=== PATIENT | female | born 1955 | race Caucasian/White ===

== ENCOUNTER 2017-07-14 09:51 | Observation (INO) ==
[2017-07-14] MEDS ORDERED: 0.9 % Sodium Chloride 1,000 ML IVC ONE (10:07)
--- NOTE | 2017-07-14 10:12 | Emergency Department Note ---
Disposition Clinical Impression: Bacterial enterocolitis, Hypokalemia, Hypomagnesemia, Lung nodule Dyspnea Qualifiers: Dyspnea type: unspecified Qualified Code(s): R06.00 - Dyspnea, unspecified Disposition: Admitted As Inpatient Condition: Good Referrals: Silviano Rasmussen DO [Primary Care Provider] - Forms: ED Satisfaction Letter, Work/School Release Time of Disposition: 13:24 General Adult HPI - General Stated complaint: amb pain/shaking Time Seen by Provider: 07/14/17 09:54 Nursing Notes Reviewed: Yes Vital Signs Reviewed: Yes - Related Data Home Medications Medication Instructions Recorded Confirmed FLUoxetine HCl [Prozac] 20 mg PO TID 12/27/14 12/25/16 Metformin [Glucophage] 1,000 mg PO BID 12/27/14 12/25/16 Multivitamin [Multi-Day Vitamins] 1 tab PO DAILY 12/27/14 12/25/16 Treprostinil Sodium [Remodulin] 0 mg IJ AD PRN 12/27/14 12/25/16 Diltiazem CD (24hr) [Cardizem CD] 240 mg PO DAILY 12/25/16 12/25/16 Furosemide [Lasix] 20 mg PO TID 12/25/16 12/25/16 Omeprazole [PriLOSEC] 40 mg PO DAILY 12/25/16 12/25/16 Riociguat [Adempas] 2.5 mg PO TID 12/25/16 12/25/16 Simvastatin [Zocor] 10 mg PO HS 12/25/16 12/25/16 Spironolactone [Aldactone] 25 mg PO BID 12/25/16 12/25/16 Tramadol HCl/Acetaminophen 2 each PO TID 12/25/16 12/25/16 [Ultracet Tablet] Warfarin [Coumadin] 7.5 mg PO 1800 12/25/16 12/25/16 Cyanocobalamin (Vitamin B-12) 1,000 mcg SL DAILY 07/14/17 07/14/17 [Vitamin B-12] Ferrous Sulfate [Iron] 325 mg PO DAILY 07/14/17 07/14/17 Magnesium Oxide [Magnesium] 400 mg PO DAILY 07/14/17 07/14/17 Warfarin [Coumadin] 10 mg PO THSA 07/14/17 07/14/17 Allergies Allergy/AdvReac Type Severity Reaction Status Date / Time chlorhexidine Allergy Rash Verified 04/24/17 14:57 nitrofurantoin Allergy Rash Verified 04/24/17 14:57 [From Macrobid] piroxicam [From Feldene] AdvReac Palpitation Verified 07/14/17 11:53 s All systems ED: reviewed and negative except as stated. Constitutional: Reports: chills (Last night and this morning. Intermittent.). Denies: fever ENT ED: Denies: congestion Cardiovascular: Denies: chest pain Respiratory: Reports: dyspnea. Denies: cough, wheezes Gastrointestinal: Reports: abdominal pain. Denies: nausea, vomiting, diarrhea, hematemesis, melena, hematochezia Genitourinary: Reports: other (Incontinent of urine) Musculoskeletal: Denies: back pain, neck pain Integumentary: Reports: lesions (Enlarging mole to lower back). Denies: rash, abrasion Neurological: Reports: weakness. Denies: headache Past Medical History - Past Medical History Attestation: Yes The following information was validated with the patient. 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 - Social History Smoking Status: Never smoker Smokeless Tobacco Status: No Alcohol use: Reports: none Drug use: Reports: none Physical Exam - General Limitations: no limitations General appearance: alert, anxious - Head Head exam: atraumatic, normocephalic, normal inspection - Eye Eye exam: Present: normal appearance, PERRL, EOMI - ENT ENT exam: normal exam, normal oropharynx, mucous membranes moist - Neck Neck exam: Present: normal inspection, full ROM, trachea midline - Chest Chest inspection: Present: normal inspection, symmetric chest wall rise - Respiratory Respiratory exam: Present: normal lung sounds bilaterally - Cardiovascular Cardiovascular exam: Present: normal rhythm, tachycardia, normal heart sounds - Abdominal Exam Abdominal exam: Present: soft, Non-Tender. Absent: tenderness, distention, guarding, rebound, rigidity - Neurological Exam Neurological exam: Present: alert, oriented X3 - Psychiatric Psychiatric exam: Present: normal affect, normal mood - Skin Skin exam: Present: warm, dry, intact, normal color Course Course Narrative: Female patient very anxious resting in bed. Complaining of chills that happened last night and then again this morning. She states that she is also short of breath. She is on 2 L of oxygen at night for pulmonary hypertension. She is also on medication report continuously for her pulmonary hypertension. 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 It was shown to not still be actively bleeding. She is on Coumadin. We will check PT/INR. She is also complaining of urinary incontinence this morning. She denies any bowel incontinence. She states she got up to go to the bathroom whenever she was walking back to the room she had some urinary incontinence. She is also complaining of decreased sensation to right lower extremity. She is neurovascularly intact in all 4 extremities and is mentating appropriately on my exam. She describes a history of tingling in her right lower extremity. We will get a CT of patient's abdomen with contrast. We will also get a CTA of her chest as well. We will get basic lab workup inclusive of the PT/INR and hemoglobin level. History last week of a MRI that she states she has a mass needs biopsy. She has no active cancer history that she is aware of however she is concerned that she possibly does have a new cancer. She also has a mole in her midline back around her sacral area. She states this has been growing. On exam she does have good rectal tone. She had 400 mL of urine in her bladder prior to Torres placement. After the Torres was placed she had 600 mL out. We will send a UA. She is getting a liter of fluid at this time. We are also provide her with some Ativan to help with her anxiety. She is tachycardic initially on exam however whenever you speak to her her heart rate does decrease into the 90s. Her abdomen is mildly distended prior to the Torres placement around her bladder area. She describes pain on palpation of her whole abdomen. It is not rigid. It is not scaphoid. Nonperitoneal - Reevaluation(s) Reevaluation #1: Patient reevaluated. After 1 L of fluid and a dose of Ativan patient states she is feeling better. She does have enterocolitis on her CT. Also a pulmonary nodule noted. No signs of PE. She has no abdominal pain on exam at this time. We have sent her urine for culture. She did have trouble urinating earlier today however she denies any burning on urination. We will admit her for her lactic acidosis and enterocolitis. Also hypokalemia and hypomagnesemia. We have started the Pt on Cipro and flagyl. Time: 12:46 - Consultations Consultation #1: Dr Aguilar accepted Pt in stable condition. Time: 13:24 Vital Signs Temperature 98.7 F 07/14/17 09:58 Pulse Rate 99 07/14/17 09:58 Respiratory Rate 22 07/14/17 09:58 Blood Pressure 146/84 07/14/17 09:58 O2 Sat by Pulse Oximetry 99 07/14/17 09:58 Temperature 98.7 F 07/14/17 09:58 Pulse Rate 75 07/14/17 13:59 Respiratory Rate 12 07/14/17 13:59 Blood Pressure 110/62 07/14/17 13:59 O2 Sat by Pulse Oximetry 99 07/14/17 13:59 Oxygen Delivery Oxygen Delivery Nasal Cannula Medical Decision Making - Medical Records Medical records reviewed: Yes I reviewed the patient's medical records. - Lab Data Lab results reviewed: Yes I reviewed the patient's lab results. Result diagrams: 07/14/17 10:33 07/14/17 10:33 Lab Results 07/14/17 07/14/17 07/14/17 Range/Units 10:33 10:33 10:33 WBC 10.8 (4.3-11.1) K/mcL RBC 4.06 (3.82-4.97) M/mcL Hgb 12.3 (11.5-15.4) g/dL Hct 34.8 L (35.3-44.9) % MCV 85.7 (83.0-100.0) fL MCH 30.3 (28.0-33.3) pg MCHC 35.3 (31.6-35.5) g/dL RDW 13.8 (11.5-14.5) % Plt Count 184 (140-400) K/mcL MPV 9.8 (9.4-12.4) fL Immature Gran % 0.7 (0-4) % Seg Neutrophils % 86.3 % Lymphocytes % 5.2 % Monocytes % 6.7 % Eosinophils % 0.7 % Basophils % 0.4 % Neutrophils # 9.3 H (1.6-8.9) K/mcL Lymphocytes # 0.6 (0.6-4.6) K/mcL Monocytes # 0.7 (0.0-1.3) K/mcL Eosinophils # 0.1 (0.0-0.6) K/mcL Basophils # 0.0 (0.0-0.2) K/mcL PT (9.4-12.1) Seconds INR D-Dimer (0-500) ng/mLFEU Sodium 139 (136-145) mEq/L Potassium 2.9 L (3.5-5.1) mEq/L Chloride 104 (98-107) mEq/L Carbon Dioxide 18 L (23-29) mEq/L BUN 14 (8-23) mg/dL Creatinine 0.69 (0.60-1.20) mg/dL Est GFR ( Amer) > 60 (> 60) Est GFR (Non-Af Amer) > 60 (> 60) BUN/Creatinine Ratio 20 (6-26) Glucose 94 (70-105) mg/dL Calculated Osmolality 288 (280-300) Lactic Acid 3.5 H (0.5-2.2) mmol/L Calcium 9.6 (8.6-10.3) mg/dL Phosphorus 1.1 L (2.7-4.5) mg/dL Magnesium 1.3 L (1.6-2.6) mg/dL Total Bilirubin 0.7 (0.3-1.0) mg/dL AST 14 (13-39) Units/L ALT 15 (7-52) Units/L Alkaline Phosphatase 81 (34-104) Units/L Troponin I < 0.03 (< 0.04) ng/mL Serum Total Protein 7.2 (6.4-8.9) g/dL Albumin 4.2 (3.5-5.7) g/dL Globulin 3.0 (2.4-3.5) g/dL Albumin/Globulin Ratio 1.4 (1.1-2.2) TSH 2.241 (0.340-5.600) mcIU/mL Urine Color (Yellow) Urine Clarity (Clear) Urine pH (5.0-8.0) pH Units Ur Specific [place] (1.010-1.025) Urine Protein (Neg-Trace) mg/dL Urine Glucose (UA) (Normal) mg/dL Urine Ketones (Negative) mg/dL Urine Blood (Negative) Urine Nitrite (Negative) Urine Bilirubin (Negative) Urine Urobilinogen (Normal) mg/dL Ur Leukocyte Esterase (Negative) Urine Microscopic RBC (0-3) per hpf Urine Microscopic WBC (0-3) per hpf Ur Squamous Epith Cells (None-Few) per lpf Urine Bacteria (None-Few) per hpf Hyaline Casts Ur Culture Indicated? (NO) 07/14/17 07/14/17 07/14/17 Range/Units 10:33 10:33 10:42 WBC (4.3-11.1) K/mcL RBC (3.82-4.97) M/mcL Hgb (11.5-15.4) g/dL Hct (35.3-44.9) % MCV (83.0-100.0) fL MCH (28.0-33.3) pg MCHC (31.6-35.5) g/dL RDW (11.5-14.5) % Plt Count (140-400) K/mcL MPV (9.4-12.4) fL Immature Gran % (0-4) % Seg Neutrophils % % Lymphocytes % % Monocytes % % Eosinophils % % Basophils % % Neutrophils # (1.6-8.9) K/mcL Lymphocytes # (0.6-4.6) K/mcL Monocytes # (0.0-1.3) K/mcL Eosinophils # (0.0-0.6) K/mcL Basophils # (0.0-0.2) K/mcL PT 39.5 H (9.4-12.1) Seconds INR 3.6 D-Dimer 727 H (0-500) ng/mLFEU Sodium (136-145) mEq/L Potassium (3.5-5.1) mEq/L Chloride (98-107) mEq/L Carbon Dioxide (23-29) mEq/L BUN (8-23) mg/dL Creatinine (0.60-1.20) mg/dL Est GFR ( Amer) (> 60) Est GFR (Non-Af Amer) (> 60) BUN/Creatinine Ratio (6-26) Glucose (70-105) mg/dL Calculated Osmolality (280-300) Lactic Acid (0.5-2.2) mmol/L Calcium (8.6-10.3) mg/dL Phosphorus (2.7-4.5) mg/dL Magnesium (1.6-2.6) mg/dL Total Bilirubin (0.3-1.0) mg/dL AST (13-39) Units/L ALT (7-52) Units/L Alkaline Phosphatase (34-104) Units/L Troponin I (< 0.04) ng/mL Serum Total Protein (6.4-8.9) g/dL Albumin (3.5-5.7) g/dL Globulin (2.4-3.5) g/dL Albumin/Globulin Ratio (1.1-2.2) TSH (0.340-5.600) mcIU/mL Urine Color Yellow (Yellow) Urine Clarity Clear (Clear) Urine pH 7.0 (5.0-8.0) pH Units Ur Specific [place] 1.006 L (1.010-1.025) Urine Protein Negative (Neg-Trace) mg/dL Urine Glucose (UA) Normal (Normal) mg/dL Urine Ketones Negative (Negative) mg/dL Urine Blood Trace H (Negative) Urine Nitrite Negative (Negative) Urine Bilirubin Negative (Negative) Urine Urobilinogen Normal (Normal) mg/dL Ur Leukocyte Esterase Moderate H (Negative) Urine Microscopic RBC 0-3 (0-3) per hpf Urine Microscopic WBC 5-15 H (0-3) per hpf Ur Squamous Epith Cells Few (None-Few) per lpf Urine Bacteria Few (None-Few) per hpf Hyaline Casts Test Not Performed Ur Culture Indicated? YES A (NO) - Radiology Data Radiology results reviewed: Yes I reviewed the patient's radiology results. Chest X-Ray 07/14/17 10:07 IMPRESSION: Interval resolution of right upper lobe opacification. No focal consolidation. D/ / Keyur Chung MD / Keyur Chung MD Interpreting Provider: Keyur Chung MD Abdomen/Pelvis CT 07/14/17 10:36 IMPRESSION: 1. Evidence of chronic pulmonary artery hypertension. No acute pulmonary emboli or findings to suggest chronic thromboembolic disease. 2. Atherosclerosis with no aortic aneurysm or evidence of dissection. 3. Nonspecific mild pulmonary mosaic attenuation predominantly involving the upper aspect which could represent possible small vessel disease. No interstitial edema or lobar pneumonia. 4. New indeterminate 9 mm right upper lobe posteromedial basal solid pulmonary nodule (see recommendations). 5. Stable size of the complex left adrenal mass which demonstrates internal lipid prominence and soft tissue density. There is no evidence of an acute internal or adjacent retroperitoneal hemorrhage since the prior 2017 exam. 6. Nonspecific mild small bowel and ascending colonic findings which could represent mild enterocolitis. No obstruction, perforation, or abscess. 7. Nonspecific mild diffuse body wall edema. Trace pelvic ascites. 8. Prior right hip arthroplasty with stable chronic erosive changes about the acetabular roof which may relate to hardware loosening. RECOMMENDATIONS: Fleischner Society guidelines for follow-up and management of incidentally detected pulmonary nodules: Single Solid Nodule: Nodule size less than 6 mm In a low-risk patient, no routine follow-up. In a high-risk patient, optional CT at 12 months. Nodule size equals 6-8 mm In a low-risk patient, CT at 6-12 months, then consider CT at 18-24 months. In a high-risk patient, CT at 6-12 months, then CT at 18-24 months. Nodule size greater than 8 mm In a low-risk patient, consider CT at 3 months, PET/CT, or tissue sampling. In a high-risk patient, consider CT at 3 months, PET/CT, or tissue sampling. - Low risk patients include individuals with minimal or absent history of smoking and other known risk factors. - High risk patients include individuals with a history or smoking or known risk factors. Radiology 2017 http://pubs.rsna.org/doi/full/10.1148/radiol.[email or web address] D/ / 07/14/2017 12:42:20 Randy Escobar MD / rober Interpreting Provider: Randy Escobar MD Chest CTA 07/14/17 10:36 IMPRESSION: 1. Evidence of chronic pulmonary artery hypertension. No acute pulmonary emboli or findings to suggest chronic thromboembolic disease. 2. Atherosclerosis with no aortic aneurysm or evidence of dissection. 3. Nonspecific mild pulmonary mosaic attenuation predominantly involving the upper aspect which could represent possible small vessel disease. No interstitial edema or lobar pneumonia. 4. New indeterminate 9 mm right upper lobe posteromedial basal solid pulmonary nodule (see recommendations). 5. Stable size of the complex left adrenal mass which demonstrates internal lipid prominence and soft tissue density. There is no evidence of an acute internal or adjacent retroperitoneal hemorrhage since the prior 2017 exam. 6. Nonspecific mild small bowel and ascending colonic findings which could represent mild enterocolitis. No obstruction, perforation, or abscess. 7. Nonspecific mild diffuse body wall edema. Trace pelvic ascites. 8. Prior right hip arthroplasty with stable chronic erosive changes about the acetabular roof which may relate to hardware loosening. RECOMMENDATIONS: Fleischner Society guidelines for follow-up and management of incidentally detected pulmonary nodules: Single Solid Nodule: Nodule size less than 6 mm In a low-risk patient, no routine follow-up. In a high-risk patient, optional CT at 12 months. Nodule size equals 6-8 mm In a low-risk patient, CT at 6-12 months, then consider CT at 18-24 months. In a high-risk patient, CT at 6-12 months, then CT at 18-24 months. Nodule size greater than 8 mm In a low-risk patient, consider CT at 3 months, PET/CT, or tissue sampling. In a high-risk patient, consider CT at 3 months, PET/CT, or tissue sampling. - Low risk patients include individuals with minimal or absent history of smoking and other known risk factors. - High risk patients include individuals with a history or smoking or known risk factors. Radiology 2017 http://pubs.rsna.org/doi/full/10.1148/[email or web address] D/ / 07/14/2017 12:42:20 Randy Escobar MD / rober Interpreting Provider: Randy Escobar MD - EKG Data EKG #1 EKG attestation: Yes I reviewed and interpreted this EKG. EKG results narrative: Sinus tachycardia at rate 105. OK interval is 148. QRS duration is 101. QT is 354. QTC is 4:15. No signs of acute ischemia. No significant change from previous EKG dated 12/25/2016.
[2017-07-14] MEDS ORDERED: *HR* LORazepam 2 MG/ML VIAL IVP ONE (10:29)
[2017-07-14 10:47] LABS: Basophils % 0.4 %; Eosinophils # 0.1 K/mcL (0.0-0.6); Eosinophils % 0.7 %; Hematocrit 34.8 % (35.3-44.9); Hemoglobin 12.3 g/dL (11.5-15.4); Immature Granulocytes % 0.7 % (0-4); Lymphocytes # 0.6 K/mcL (0.6-4.6); Lymphocytes % 5.2 %; Mean Corpuscular HGB Conc 35.3 g/dL (31.6-35.5); Mean Corpuscular Hemoglobin 30.3 pg (28.0-33.3); Mean Corpuscular Volume 85.7 fL (83.0-100.0); Mean Platelet Volume 9.8 fL (9.4-12.4); Monocytes # 0.7 K/mcL (0.0-1.3); Monocytes % 6.7 %; Neutrophils # 9.3 K/mcL (1.6-8.9); Platelet Count 184 K/mcL (140-400); Red Blood Count 4.06 M/mcL (3.82-4.97); Red Cell Distribution Width 13.8 % (11.5-14.5); Segmented Neutrophils % 86.3 %
[2017-07-14 10:56] LABS: INR 3.6; Prothrombin Time 39.5 Seconds (9.4-12.1)
--- NOTE | 2017-07-14 11:03 | Emergency Department Note ---
Disposition Clinical Impression: Dyspnea Qualifiers: Dyspnea type: shortness of breath Qualified Code(s): R06.02 - Shortness of breath; R06.00 - Dyspnea, unspecified; R06.01 - Orthopnea Disposition: Still a Patient Referrals: Silviano Rasmussen DO [Primary Care Provider] - General Adult HPI - General Chief complaint: ED Abdominal Pain Stated complaint: amb pain/shaking Time Seen by Provider: 07/14/17 09:54 Source: patient, EMS Limitations: no limitations - History of Present Illness Pain Scale: 5 - Related Data Home Medications Medication Instructions Recorded Confirmed FLUoxetine HCl [Prozac] 20 mg PO TID 12/27/14 12/25/16 Metformin [Glucophage] 1,000 mg PO BID 12/27/14 12/25/16 Multivitamin [Multi-Day Vitamins] 1 tab PO DAILY 12/27/14 12/25/16 Treprostinil Sodium [Remodulin] 0 mg IJ AD PRN 12/27/14 12/25/16 Diltiazem CD (24hr) [Cardizem CD] 240 mg PO DAILY 12/25/16 12/25/16 Furosemide [Lasix] 20 mg PO TID 12/25/16 12/25/16 Omeprazole [PriLOSEC] 40 mg PO DAILY 12/25/16 12/25/16 Riociguat [Adempas] 2.5 mg PO TID 12/25/16 12/25/16 Simvastatin [Zocor] 10 mg PO HS 12/25/16 12/25/16 Spironolactone [Aldactone] 25 mg PO BID 12/25/16 12/25/16 Tramadol HCl/Acetaminophen 2 each PO TID 12/25/16 12/25/16 [Ultracet Tablet] Warfarin [Coumadin] 7.5 mg PO 1800 12/25/16 12/25/16 Previous Rx's Medication Instructions Recorded Guaifenesin [Mucinex] 1,200 mg PO BID PRN #30 tab.er.12h 02/05/17 Levofloxacin [Levaquin] 500 mg PO DAILY #10 tablet 02/05/17 Amoxicillin [Amoxil] 1,000 mg PO BID 10 Days #20 capsule 04/24/17 predniSONE [PredniSONE] 20 mg PO DAILY 5 Days #7 tablet 04/24/17 Allergies Allergy/AdvReac Type Severity Reaction Status Date / Time chlorhexidine Allergy Rash Verified 04/24/17 14:57 nitrofurantoin Allergy Rash Verified 04/24/17 14:57 [From Macrobid] piroxicam [From Feldene] Allergy Palpitation Verified 04/24/17 14:57 s Constitutional: Reports: chills (Last night and this morning. Intermittent.). Denies: fever ENT ED: Denies: congestion Cardiovascular: Denies: chest pain Respiratory: Reports: dyspnea. Denies: cough, wheezes Gastrointestinal: Reports: abdominal pain. Denies: nausea, vomiting, diarrhea, hematemesis, melena, hematochezia Genitourinary: Reports: other (Incontinent of urine) Musculoskeletal: Denies: back pain, neck pain Integumentary: Reports: lesions (Enlarging mole to lower back). Denies: rash, abrasion Neurological: Reports: weakness. 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 I agree with the documented findings, disposition and treatment plan as described except to the extent set forth below. I have personally performed a face to face evaluation on this patient. I have reviewed and agree with the care plan. Briefly: 62-year-old female presents with fatigue anxiety dyspnea chest and abdominal pain lightheadedness for the past several days. 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 She is postop follow-up abdominal pelvic ultrasound to check on the mass and stay in which the surgical coordinator at the [facility] was currently make determination of surgical management was warranted. Patient wants tachycardic at 105 sinus rhythm otherwise abdominal examination is surgically benign she said she had an episode of urinary incontinence last night should normal rectal tone normal DTRs on exam catheter UA performed residual showed 600 mL for left in place. The patient's dyspnea and recent diagnosis of the new mass discovered in the past during a mammogram at the end of June she can get a CT scan extremity chest for pulmonary embolism and abdominopelvic as well in order to assess the adrenal mass. Patient getting IV fluids and benzos to treat her anxiety. Provided 45 minutes critical care service for this patient, admission anticipated, disposition pending Time: 11:01 Vital Signs Temperature 98.7 F 07/14/17 09:58 Pulse Rate 99 07/14/17 09:58 Respiratory Rate 22 07/14/17 09:58 Blood Pressure 146/84 07/14/17 09:58 O2 Sat by Pulse Oximetry 99 07/14/17 09:58 Temperature 98.7 F 07/14/17 09:58 Pulse Rate 99 07/14/17 09:58 Respiratory Rate 22 07/14/17 09:58 Blood Pressure 146/84 07/14/17 09:58 O2 Sat by Pulse Oximetry 99 07/14/17 10:41 Oxygen Delivery Oxygen Delivery Nasal Cannula Medical Decision Making - Lab Data Result diagrams: 07/14/17 10:33 Lab Results 07/14/17 07/14/17 07/14/17 Range/Units 10:33 10:33 10:33 WBC 10.8 (4.3-11.1) K/mcL RBC 4.06 (3.82-4.97) M/mcL Hgb 12.3 (11.5-15.4) g/dL Hct 34.8 L (35.3-44.9) % MCV 85.7 (83.0-100.0) fL MCH 30.3 (28.0-33.3) pg MCHC 35.3 (31.6-35.5) g/dL RDW 13.8 (11.5-14.5) % Plt Count 184 (140-400) K/mcL MPV 9.8 (9.4-12.4) fL Immature Gran % 0.7 (0-4) % Seg Neutrophils % 86.3 % Lymphocytes % 5.2 % Monocytes % 6.7 % Eosinophils % 0.7 % Basophils % 0.4 % Neutrophils # 9.3 H (1.6-8.9) K/mcL Lymphocytes # 0.6 (0.6-4.6) K/mcL Monocytes # 0.7 (0.0-1.3) K/mcL Eosinophils # 0.1 (0.0-0.6) K/mcL Basophils # 0.0 (0.0-0.2) K/mcL PT 39.5 H (9.4-12.1) Seconds INR 3.6 D-Dimer (0-500) ng/mLFEU Lactic Acid 3.5 H (0.5-2.2) mmol/L 07/14/17 Range/Units 10:33 WBC (4.3-11.1) K/mcL RBC (3.82-4.97) M/mcL Hgb (11.5-15.4) g/dL Hct (35.3-44.9) % MCV (83.0-100.0) fL MCH (28.0-33.3) pg MCHC (31.6-35.5) g/dL RDW (11.5-14.5) % Plt Count (140-400) K/mcL MPV (9.4-12.4) fL Immature Gran % (0-4) % Seg Neutrophils % % Lymphocytes % % Monocytes % % Eosinophils % % Basophils % % Neutrophils # (1.6-8.9) K/mcL Lymphocytes # (0.6-4.6) K/mcL Monocytes # (0.0-1.3) K/mcL Eosinophils # (0.0-0.6) K/mcL Basophils # (0.0-0.2) K/mcL PT (9.4-12.1) Seconds INR D-Dimer 727 H (0-500) ng/mLFEU Lactic Acid (0.5-2.2) mmol/L
[2017-07-14 11:07] LABS: Alanine Aminotransferase 15 Units/L (7-52); Albumin 4.2 g/dL (3.5-5.7); Albumin/Globulin Ratio 1.4 (1.1-2.2); Alkaline Phosphatase 81 Units/L (34-104); Aspartate Amino Transferase 14 Units/L (13-39); BUN/Creatinine Ratio 20 (6-26); Bilirubin,Total 0.7 mg/dL (0.3-1.0); Blood Urea Nitrogen 14 mg/dL (8-23); Calcium 9.6 mg/dL (8.6-10.3); Carbon Dioxide 18 mEq/L (23-29); Chloride 104 mEq/L (98-107); Glucose 94 mg/dL (70-105); Magnesium 1.3 mg/dL (1.6-2.6); Osmolality,Calculated 288 (280-300); Phosphorous 1.1 mg/dL (2.7-4.5); Potassium 2.9 mEq/L (3.5-5.1); Sodium 139 mEq/L (136-145); Total Protein 7.2 g/dL (6.4-8.9); Troponin I < 0.03 ng/mL (< 0.04); eGFR For African Americans > 60 (> 60); eGFR For Non-African Americans > 60 (> 60)
[2017-07-14 11:21] LABS: Thyroid Stimulating Hormone 2.241 mcIU/mL (0.340-5.600)
[2017-07-14 11:31] LABS: Bilirubin,Urine Negative (Negative); Blood,Urine Trace (Negative); Clarity,Urine Clear (Clear); Color,Urine Yellow (Yellow); Glucose,Urine (UA) Normal (Normal); Ketones,Urine Negative (Negative); Leukocyte Esterase,Urine Moderate (Negative); Nitrite,Urine Negative (Negative); Protein,Urine Negative (Neg-Trace); Specific Gravity,Urine 1.006 (1.010-1.025); Urobilinogen,Urine Normal (Normal)
[2017-07-14 12:12] LABS: Bacteria,Urine Few per hpf (None-Few); RBC,Urine 0-3 per hpf (0-3); Squamous Epithelial Cell,Urine Few per lpf (None-Few)
[2017-07-14] MEDS ORDERED: MetroNIDAZOLE 500 MG/100 ML 500 MG/100 ML BAG IVPB ONE (13:20)
[2017-07-14] MEDS ORDERED: 0.9 % Sodium Chloride 500 ML ONE (14:38)
[2017-07-14] MEDS ORDERED: TREPROSTINIL SODIUM SQ PRN (14:57)
[2017-07-14] MEDS ORDERED: ACETAMINOPHEN PO SCH (15:00)
[2017-07-14] MEDS ORDERED: [UNRECOGNIZED DRUG - OTHER] PO SCH (15:00)
[2017-07-14] MEDS ORDERED: TRAMADOL HCL PO SCH (15:00)
[2017-07-14] MEDS ORDERED: Naloxone 0.4 MG/ML INJ IVP PRN (15:01)
--- NOTE | 2017-07-14 15:35 | Internal Med History&Physical ---
<Timi Newell - Last Filed: 07/14/17 15:55> Date of Encounter: 07/14/17 Time of Encounter: 15:28 Internal Medicine - H&P: HPI Admitted From: Home Plans for Post Hospital Care: Home History of present illness: 62 year old female patient presented with chills that happened last night and then again this morning. She states that she is also short of breath. She is on 2 L of oxygen at night for pulmonary hypertension. She is also on medication report continuously for her pulmonary hypertension. 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 It was shown to not still be actively bleeding. She is on Coumadin. She is also complaining of urinary incontinence this morning. She denies any bowel incontinence. She states she got up to go to the bathroom whenever she was walking back to the room she had some urinary incontinence. She is also complaining of decreased sensation to right lower extremity. She describes a history of tingling in her right lower extremity. She has no active cancer history that she is aware of however she is concerned that she possibly does have a new cancer. She also has a mole in her midline back around her sacral area. She states this has been growing. On exam she does have good rectal tone. She had 400 mL of urine in her bladder prior to Torres placement. After the Torres was placed she had 600 mL out. We will send a UA. She is getting a liter of fluid at this time. We are also provide her with some Ativan to help with her anxiety. She is tachycardic initially on exam however whenever you speak to her her heart rate does decrease into the 90s. Her abdomen is mildly distended prior to the Otrres placement around her bladder area. She describes pain on palpation of her whole abdomen. Past Med Surg Social Fam HX - Past Medical History Medical history: diabetes, hypertension Psychiatric history: anxiety - Past Surgical History Surgical History: , orthopedic, other - Social History Smoking Status: Never smoker Smokeless Tobacco Status: No Alcohol use: none Drug use: none - Family History Father Hx Family Cancer: Yes (lung cancer) Mother Hx Family Cardiac Disorders: Yes (aortic aneurysm dissection, heart valve replacement) Hx Family Cancer: Yes (cervical cancer) Internal Medicine - H&P: Meds FLUoxetine HCl [Prozac] 20 mg PO TID 12/27/14 [History] Metformin [Glucophage] 1,000 mg PO BID 12/27/14 [History] Multivitamin [Multi-Day Vitamins] 1 tab PO DAILY 12/27/14 [History] Treprostinil Sodium [Remodulin] 0 mg IJ AD PRN 12/27/14 [History] Diltiazem CD (24hr) [Cardizem CD] 240 mg PO DAILY 12/25/16 [History] Furosemide [Lasix] 20 mg PO TID 12/25/16 [History] Omeprazole [PriLOSEC] 40 mg PO DAILY 12/25/16 [History] Riociguat [Adempas] 2.5 mg PO TID 12/25/16 [History] Simvastatin [Zocor] 10 mg PO HS 12/25/16 [History] Spironolactone [Aldactone] 25 mg PO BID 12/25/16 [History] Tramadol HCl/Acetaminophen [Ultracet Tablet] 2 each PO TID 12/25/16 [History] Warfarin [Coumadin] 7.5 mg PO SUMOTUWEFR 12/25/16 [History] Cyanocobalamin (Vitamin B-12) [Vitamin B-12] 1,000 mcg SL DAILY 07/14/17 [ History] Ferrous Sulfate [Iron] 325 mg PO DAILY 07/14/17 [History] Magnesium Oxide [Magnesium] 400 mg PO DAILY 07/14/17 [History] Warfarin [Coumadin] 10 mg PO THSA 07/14/17 [History] 3 Allergy/AdvReac Type Severity Reaction Status Date / Time chlorhexidine Allergy Rash Verified 04/24/17 14:57 nitrofurantoin Allergy Rash Verified 04/24/17 14:57 [From Macrobid] piroxicam [From Feldene] AdvReac Palpitation Verified 07/14/17 11:53 s All Systems PM: A 10-system review of systems was performed and is negative for pertinent findings except as documented above in the HPI. - Constitutional Constitutional: no chills, no fever(s), no night sweats - EENT Eyes: no change in vision, no discharge, no pain, no photophobia Ears: no ear discharge, no ear pain, no tinnitus Nose, mouth and throat: no dysphagia, no nasal discharge, no neck pain, no sore throat - Cardiovascular Cardiovascular ROS IM: no chest pain, no diaphoresis, no dyspnea, no lightheadedness, no palpitations, no syncope - Respiratory Respiratory: no cough, no dyspnea, no wheezing, no excessive phlegm production - Gastrointestinal Gastrointestinal: no abdominal pain, no diarrhea, no hematemesis, no hematochezia, no melena, no nausea, no vomiting - Genitourinary Genitourinary: no change in urinary stream, no dysuria, no flank pain, no hematuria - Musculoskeletal Musculoskeletal ROS IM: no numbness, no tingling - Integumentary Integumentary IM: no rash, no unusual bruising - Neurological Neurological ROS: no confusion, no convulsions, no focal weakness, no numbness, no tingling, no tremor(s) - Hematologic/Lymphatic Hematologic/Lymphatic: no easy bruising - Constitutional Vitals: Temp Pulse Resp BP Pulse Ox 98.7 F 75 12 110/62 99 07/14/17 09:58 07/14/17 13:59 07/14/17 13:59 07/14/17 13:59 07/14/17 13:59 - Head Head exam: Present: atraumatic, normocephalic - Eye Eye exam: Present: PERRL, conjuntiva pink, sclera anicteric Pupils: Present: PERRL - Neck Neck exam general surgery: Present: supple, trachea midline. Absent: lymphadenopathy - Respiratory Respiratory exam: Present: CTAB. Absent: accessory muscle use, rales, rhonchi, wheezes - Cardiovascular Cardiovascular exam: Present: RRR, +S1, +S2. Absent: diastolic murmur, gallop, rubs, systolic murmur - GI/Abdominal GI/Abdominal exam: Present: normal bowel sounds, soft, no peritoneal signs. Absent: distended, tenderness - Extremities Exam Extremities exam: Present: warm, radial pulses palpable and symmetrical. Absent : calf tenderness, cyanotic, pedal edema - Neurological Exam Neurological exam: Present: CN II-XII intact, oriented X3, no focal deficits. Absent: pronater drift, facial droop, speech deficit - Skin Skin exam: Present: dry, intact Internal Med - H&P Results - Labs CBC & Chem 7: 07/14/17 10:33 07/14/17 10:33 Labs: Short CBC 07/14/17 Range/Units 10:33 WBC 10.8 (4.3-11.1) K/mcL Hgb 12.3 (11.5-15.4) g/dL Hct 34.8 L (35.3-44.9) % Plt Count 184 (140-400) K/mcL Neutrophils # 9.3 H (1.6-8.9) K/mcL BMP 07/14/17 10:33 Sodium 139 Potassium 2.9 L Chloride 104 Carbon Dioxide 18 L BUN 14 Creatinine 0.69 Glucose 94 Calcium 9.6 Cardiac Enzymes 07/14/17 Range/Units 10:33 Troponin I < 0.03 (< 0.04) ng/mL Liver Function 07/14/17 Range/Units 10:33 Total Bilirubin 0.7 (0.3-1.0) mg/dL AST 14 (13-39) Units/L ALT 15 (7-52) Units/L Alkaline Phosphatase 81 (34-104) Units/L Albumin 4.2 (3.5-5.7) g/dL Urine 07/14/17 Range/Units 10:42 Urine Color Yellow (Yellow) Urine Clarity Clear (Clear) Urine pH 7.0 (5.0-8.0) pH Units Ur Specific [place] 1.006 L (1.010-1.025) Urine Protein Negative (Neg-Trace) mg/dL Urine Glucose (UA) Normal (Normal) mg/dL - Impressions ITS Impressions Chest X-Ray 07/14/17 10:07 IMPRESSION: Interval resolution of right upper lobe opacification. No focal consolidation. D/ / Keyur Chung MD / Keyur Chung MD Interpreting Provider: Keyur Chung MD Abdomen/Pelvis CT 07/14/17 10:36 IMPRESSION: 1. Evidence of chronic pulmonary artery hypertension. No acute pulmonary emboli or findings to suggest chronic thromboembolic disease. 2. Atherosclerosis with no aortic aneurysm or evidence of dissection. 3. Nonspecific mild pulmonary mosaic attenuation predominantly involving the upper aspect which could represent possible small vessel disease. No interstitial edema or lobar pneumonia. 4. New indeterminate 9 mm right upper lobe posteromedial basal solid pulmonary nodule (see recommendations). 5. Stable size of the complex left adrenal mass which demonstrates internal lipid prominence and soft tissue density. There is no evidence of an acute internal or adjacent retroperitoneal hemorrhage since the prior 2017 exam. 6. Nonspecific mild small bowel and ascending colonic findings which could represent mild enterocolitis. No obstruction, perforation, or abscess. 7. Nonspecific mild diffuse body wall edema. Trace pelvic ascites. 8. Prior right hip arthroplasty with stable chronic erosive changes about the acetabular roof which may relate to hardware loosening. RECOMMENDATIONS: Fleischner Society guidelines for follow-up and management of incidentally detected pulmonary nodules: Single Solid Nodule: Nodule size less than 6 mm In a low-risk patient, no routine follow-up. In a high-risk patient, optional CT at 12 months. Nodule size equals 6-8 mm In a low-risk patient, CT at 6-12 months, then consider CT at 18-24 months. In a high-risk patient, CT at 6-12 months, then CT at 18-24 months. Nodule size greater than 8 mm In a low-risk patient, consider CT at 3 months, PET/CT, or tissue sampling. In a high-risk patient, consider CT at 3 months, PET/CT, or tissue sampling. - Low risk patients include individuals with minimal or absent history of smoking and other known risk factors. - High risk patients include individuals with a history or smoking or known risk factors. Radiology 2017 http://pubs.rsna.org/doi/full/10.1148/radiol.[email or web address] D/ / 07/14/2017 12:42:20 Randy Escobar MD / rober Interpreting Provider: Randy Escobar MD Chest CTA 07/14/17 10:36 IMPRESSION: 1. Evidence of chronic pulmonary artery hypertension. No acute pulmonary emboli or findings to suggest chronic thromboembolic disease. 2. Atherosclerosis with no aortic aneurysm or evidence of dissection. 3. Nonspecific mild pulmonary mosaic attenuation predominantly involving the upper aspect which could represent possible small vessel disease. No interstitial edema or lobar pneumonia. 4. New indeterminate 9 mm right upper lobe posteromedial basal solid pulmonary nodule (see recommendations). 5. Stable size of the complex left adrenal mass which demonstrates internal lipid prominence and soft tissue density. There is no evidence of an acute internal or adjacent retroperitoneal hemorrhage since the prior 2017 exam. 6. Nonspecific mild small bowel and ascending colonic findings which could represent mild enterocolitis. No obstruction, perforation, or abscess. 7. Nonspecific mild diffuse body wall edema. Trace pelvic ascites. 8. Prior right hip arthroplasty with stable chronic erosive changes about the acetabular roof which may relate to hardware loosening. RECOMMENDATIONS: Fleischner Society guidelines for follow-up and management of incidentally detected pulmonary nodules: Single Solid Nodule: Nodule size less than 6 mm In a low-risk patient, no routine follow-up. In a high-risk patient, optional CT at 12 months. Nodule size equals 6-8 mm In a low-risk patient, CT at 6-12 months, then consider CT at 18-24 months. In a high-risk patient, CT at 6-12 months, then CT at 18-24 months. Nodule size greater than 8 mm In a low-risk patient, consider CT at 3 months, PET/CT, or tissue sampling. In a high-risk patient, consider CT at 3 months, PET/CT, or tissue sampling. - Low risk patients include individuals with minimal or absent history of smoking and other known risk factors. - High risk patients include individuals with a history or smoking or known risk factors. Radiology 2017 http://pubs.rsna.org/doi/full/10.1148/radiol.[email or web address] D/ / 07/14/2017 12:42:20 Randy Escobar MD / rober Interpreting Provider: Randy Escobar MD - Assessment and plan (1) Pulmonary arterial hypertension Current Visit: Yes Status: Chronic Assessment and plan: - Hx of PAH and currently on remodelin and adampas at home, usually f/u with MD at [facility]. - c/o of SOB recently, at home O2 but only wear at night. - mild fluid overload on physical exam, hold home oral Lasix, will give IV lasix. - continue home meds including Adampas, inmodulin, and aldacone. Hold coumadin for today due to supra-therapeutic INR (INR>3), will resume tomorrow if INR back to therapeutic range. (2) Bacterial enterocolitis Current Visit: Yes Status: Acute Assessment and plan: - CT revealed possible enteritis, received IV abx at ED, switch to oral abx. - Stool cx pending. (3) Hypokalemia Current Visit: Yes Status: Acute Assessment and plan: - replaced, will check BMP in am. (4) Hypomagnesemia Current Visit: Yes Status: Acute Assessment and plan: - replaced at ED, will check Mg in am. (5) Lung nodule Current Visit: Yes Status: Acute Assessment and plan: - New nodule 8mm on CT scan, need f/u per current guideline. 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 (7) Diabetes mellitus Current Visit: No Status: Chronic Assessment and plan: - Hold metformin, start insulin SS. 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 Dorsey is a 62 year old female All Systems PM: A 10-system review of systems was performed and is negative for pertinent findings except as documented above in the HPI. - Constitutional Vitals: Temp Pulse Resp BP Pulse Ox 98.7 F 75 16 122/70 99 07/14/17 09:58 07/14/17 13:59 07/14/17 17:48 07/14/17 17:48 07/14/17 13:59 Internal Med - H&P Results - Labs CBC & Chem 7: 07/14/17 10:33 07/14/17 10:33 - Attending Attestation I examined this patient and my medical decision-making was reviewed with the Resident Physician. I agree with the documented findings, disposition and treatment plan as described except to the extent set forth below. - Time Spent With Patient Total time spent is greater than 50% in coordination of care (as documented) at patient's floor/unit and/or counseling patient:
[2017-07-14] MEDS ORDERED: *HR* Dextrose 50 % in Water (Syg) 50 ML SYRINGE IVP PRN (15:38)
[2017-07-14] MEDS ORDERED: D5% in Water 1,000 ML IVC PRN (15:38)
[2017-07-14] MEDS ORDERED: Dextrose Gel 15 GM/37.5 ML TUBE PO PRN ×2 (15:38)
[2017-07-14] MEDS: Acetaminophen 325 MG TABLET PO SCH ×2 (18:18→20:28)
[2017-07-14] MEDS: traMADol 50 MG TABLET PO SCH ×2 (18:18→20:29)
[2017-07-14] MEDS: FLUoxetine 20 MG CAPSULE PO SCH ×2 (18:18→20:26)
[2017-07-14] MEDS: Insulin LISPRO 300 UNITS/3 ML VIAL SQ SCH (18:19)
[2017-07-14] MEDS: RIOCIGUAT 2.5 MG PO SCH ×3 (18:19→23:53)
[2017-07-14] MEDS: Spironolactone 25 MG TABLET PO SCH (20:26)
[2017-07-14] MEDS: Furosemide 40 MG/4 ML VIAL IVP SCH (20:27)
[2017-07-14] MEDS ORDERED: Insulin LISPRO 300 UNITS/3 ML VIAL SQ SCH (21:00)
[2017-07-15 04:53] LABS: Hematocrit 33.1 % (35.3-44.9); Mean Corpuscular HGB Conc 33.2 g/dL (31.6-35.5); Mean Corpuscular Hemoglobin 29.6 pg (28.0-33.3); Mean Corpuscular Volume 89.2 fL (83.0-100.0); Mean Platelet Volume 9.5 fL (9.4-12.4); Platelet Count 145 K/mcL (140-400); Red Blood Count 3.71 M/mcL (3.82-4.97); Red Cell Distribution Width 14.1 % (11.5-14.5)
[2017-07-15 04:55] LABS: BUN/Creatinine Ratio 17 (6-26); Blood Urea Nitrogen 11 mg/dL (8-23); Calcium 8.8 mg/dL (8.6-10.3); Carbon Dioxide 27 mEq/L (23-29); Chloride 107 mEq/L (98-107); Glucose 102 mg/dL (70-105); Magnesium 1.7 mg/dL (1.6-2.6); Osmolality,Calculated 290 (280-300); Potassium 3.2 mEq/L (3.5-5.1); Sodium 140 mEq/L (136-145); eGFR For African Americans > 60 (> 60); eGFR For Non-African Americans > 60 (> 60)
[2017-07-15 04:58] LABS: INR 2.8; Prothrombin Time 30.6 Seconds (9.4-12.1)
[2017-07-15 05:01] LABS: Activated Partial Thrombo Time 38.1 Seconds (26.0-36.0)
[2017-07-15] MEDS: Insulin LISPRO 300 UNITS/3 ML VIAL SQ SCH ×2 (08:01→12:08)
[2017-07-15] MEDS: RIOCIGUAT 2.5 MG PO SCH ×2 (08:04→15:35)
[2017-07-15] MEDS: Furosemide 40 MG/4 ML VIAL IVP SCH (08:05)
[2017-07-15] MEDS: Acetaminophen 325 MG TABLET PO SCH ×2 (08:05→15:35)
[2017-07-15] MEDS: traMADol 50 MG TABLET PO SCH ×2 (08:05→15:35)
[2017-07-15] MEDS: Spironolactone 25 MG TABLET PO SCH (08:06)
[2017-07-15] MEDS: FLUoxetine 20 MG CAPSULE PO SCH (08:07)
[2017-07-15] MEDS ORDERED: Potassium Chloride Elixir 20 MEQ/15 ML UDC PO ONE (08:24)
[2017-07-15] MEDS ORDERED: Magnesium Oxide 400 MG TABLET PO SCH (09:00)
[2017-07-15] MEDS ORDERED: FLUoxetine 20 MG CAPSULE PO SCH (09:00)
[2017-07-15] MEDS ORDERED: Cyanocobalamin (B-12) 1,000 MCG TABLET PO SCH (09:00)
[2017-07-15] MEDS ORDERED: Diltiazem CD (24hr) 240 MG CAPSULE PO SCH (09:00)
[2017-07-15] MEDS ORDERED: metroNIDAZOLE 500 MG TABLET PO SCH (09:00)
[2017-07-15] MEDS ORDERED: Multivit/Ca/Min/Fe/FA 1 TAB TABLET PO SCH (09:00)
[2017-07-15] MEDS ORDERED: FLUoxetine 20 MG CAPSULE PO STA (09:07)
--- NOTE | 2017-07-15 11:05 | Internal Med Progress Note ---
<Silviano Gomez - Last Filed: 07/15/17 11:03> Date of Encounter: 07/15/17 Time of Encounter: 09:15 - Assessment and plan (1) Enterocolitis Status: Acute Assessment and plan: Patient has chronic history of diarrhea secondary to Riociguat - CT abdomen and pelvis demonstrates nonspecific mild small bowel and ascending colonic findings which may represent mild enterocolitis. No findings of obstruction, perforation or abscess. Also noted was nonspecific mild diffuse body wall edema and trace pelvic ascites. -Current antibiotics: Flagyl IV day #2 - Patient currently asymptomatic unsure if this is acute on chronic or just her chronic diarrhea. (2) Urinary retention Status: Acute Assessment and plan: One episode of urinary retention after presenting to the emergency department - No chronic equine findings, appropriate rectal tone - Patient had urinary catheter placed secondary to urinary retention, we will take out today and evaluate postvoid residual with bladder scan (3) Pulmonary arterial hypertension Status: Chronic Assessment and plan: - Hx of PAH and currently on remodelin and adampas at home, usually f/u with MD at [facility]. - c/o of SOB recently, at home O2 but only wear at night. - Stable (4) Hypokalemia Status: Acute Assessment and plan: Likely secondary to diarrhea - Potassium 3.2 today, provide by mouth potassium chloride 40 meq once (5) Hypomagnesemia Status: Acute Assessment and plan: Likely secondary to diarrhea - normalized today - no intervention at this time. (6) Lung nodule Status: Acute Assessment and plan: New indeterminate 9 mm right upper lobe posteromedial basal solid pulmonary nodule Recommendations: In a low-risk patient, consider CT at 3 months, PET/CT, or tissue sampling. - Patient to follow up with PCP (7) Adrenal hemorrhage syndrome Status: Chronic Assessment and plan: History of adrenal hemorrhage, followed up at [facility]. Left adrenal 4.5 x 5.7 cm mass previously measured 4.1 x 5.4 cm and is likely essentially stable this demonstrates internal calcifications with areas which demonstrates lipid predominance and internal soft tissue component. There is no evidence of an acute internal or retroperitoneal hemorrhage. - Time Spent With Patient Total time spent is greater than 50% in coordination of care (as documented) at patient's floor/unit and/or counseling patient: - Subjective Interval history: Mrs. Dorsey 62-year-old female seen and evaluated patient bedside. She denies any symptoms that she was admitted with today. She states that they had cleared up overnight and she is no longer symptomatic. She states she has chronic diarrhea due to the medications he states her pulmonary hypertension. She states that the right leg weakness/tingling has resolved on its own. She denies any difficulty with bowel control. She had only one episode of urinary retention after she presented to the emergency department and is tolerating her urinary catheter. She denies any fevers, chills, diaphoresis, nausea or vomiting since admission. She feels back to her normal self today. - Constitutional Vitals: Temp Pulse Resp BP Pulse Ox 98.6 F 83 16 96/58 95 07/15/17 10:48 07/15/17 10:48 07/15/17 10:48 07/15/17 10:48 07/15/17 10:48 Exam: General: Patient alert, awake, oriented 3, interactive, in no acute distress HEENT: Normocephalic, atraumatic, pupils equal reactive to light, oral mucosa moist, uvula midline, neck supple trachea midline no palpable lymphadenopathy, no thyromegaly. Chest: Symmetric bilateral correlating with respiratory effort, effort nonlabored. Cardiac: Regular rate and rhythm, grade 2/6 systolic ejection murmur appreciated in the pulmonic auscultatory velázquez, no bruits appreciated bilateral carotids, Radial pulses 2+ bilateral, posterior tibial and dorsal pedal pulses 2+ bilateral. Respiratory: Clear to auscultation all lung velázquez Abdomen: Soft, nontender, positive bowel sounds, no palpable masses appreciated on examination Extremities: Symmetric bilateral, bilateral lower extremities without erythema or edema patient moving all 4 extremities spontaneously. Muscle strength 5 out of 5 bilateral lower extremities with neurovascular intact. 5 out of 5 upper extremities bilateral muscle strength Neurologic: No focal deficits appreciated on examination. Face symmetric, muscle strength symmetric bilateral upper and lower extremities. Internal Medicine: Result - Labs CBC & Chem 7: 07/15/17 04:25 07/15/17 04:25 Labs: Short CBC 07/15/17 Range/Units 04:25 WBC 6.1 (4.3-11.1) K/mcL Hgb 11.0 L (11.5-15.4) g/dL Hct 33.1 L (35.3-44.9) % Plt Count 145 (140-400) K/mcL BMP 07/15/17 04:25 Sodium 140 Potassium 3.2 L Chloride 107 Carbon Dioxide 27 BUN 11 Creatinine 0.66 Glucose 102 Calcium 8.8 - ABG Interpretation ABG results: PT/INR, D-dimer PT 30.6 Seconds (9.4-12.1) H 07/15/17 04:25 D-Dimer 727 ng/mLFEU (0-500) H 07/14/17 10:33 - VTE Documentation of Mechanical Device: Intermittent pneumatic compression device Consult Discharge Plan - Plan Instructions: Ciprofloxacin (By mouth), Warfarin (By mouth), Diabetes Mellitus Type 2 in Adults (DC) Additional Instructions: Take Rx as prescribed. Follow up with PCP in the next 3-5 days recheck INR with PCP in the next 3-5 days Referrals: Ashley Gasca CNP [Advanced Practice Nurse] - 07/18/17 11:30 am Silviano Rasmussen DO [Primary Care Provider] - Prescriptions: Ciprofloxacin [Cipro] 500 mg PO BID 3 Days #6 tablet <Jatin Alanis H - Last Filed: 07/15/17 17:14> Date of Encounter: 07/15/17 - Assessment and plan (1) Pulmonary arterial hypertension Status: Chronic (2) Diabetes mellitus Status: Chronic Qualifiers: Diabetes mellitus type: type 2 Diabetes mellitus custodial insulin use: without long term care social worker use Diabetes mellitus complication status: without complication Qualified Code(s): E11.9 - Type 2 diabetes mellitus without complications (3) Bacterial enterocolitis Status: Acute (4) Hypokalemia Status: Acute (5) Hypomagnesemia Status: Acute (6) Lung nodule Status: Acute (7) Adrenal hemorrhage syndrome Status: Chronic - Time Spent With Patient Total time spent is greater than 50% in coordination of care (as documented) at patient's floor/unit and/or counseling patient: - Constitutional Vitals: Temp Pulse Resp BP Pulse Ox 98.3 F 95 19 109/58 95 07/15/17 15:58 07/15/17 15:58 07/15/17 15:58 07/15/17 15:58 07/15/17 15:58 Internal Medicine: Result - Labs CBC & Chem 7: 07/15/17 04:25 07/15/17 04:25 Labs: Short CBC 07/15/17 Range/Units 04:25 WBC 6.1 (4.3-11.1) K/mcL Hgb 11.0 L (11.5-15.4) g/dL Hct 33.1 L (35.3-44.9) % Plt Count 145 (140-400) K/mcL BMP 07/15/17 04:25 Sodium 140 Potassium 3.2 L Chloride 107 Carbon Dioxide 27 BUN 11 Creatinine 0.66 Glucose 102 Calcium 8.8 - ABG Interpretation ABG results: PT/INR, D-dimer PT 30.6 Seconds (9.4-12.1) H 07/15/17 04:25 D-Dimer 727 ng/mLFEU (0-500) H 07/14/17 10:33 - Attending Attestation UTI, stable to discharge on cipro Urine culture pending will call if antibiotic needs to be changed I examined this patient and my medical decision-making was reviewed with the Resident Physician. I agree with the documented findings, disposition and treatment plan as described except to the extent set forth below.
--- NOTE | 2017-07-15 15:11 | Discharge Summary ---
<Silviano Gomez - Last Filed: 07/15/17 15:47> Orders not resulted at time of discharge: Pending orders 07/16/17 04:00 INR/PT [Prothrombin Time INR] [COAG] AM 0400 07/17/17 04:00 INR/PT [Prothrombin Time INR] [COAG] AM 0400 07/18/17 04:00 INR/PT [Prothrombin Time INR] [COAG] AM 0400 Date of Encounter: 07/15/17 Time of Encounter: 15:09 - Discharge Diagnosis (1) Enterocolitis Priority: Primary Status: Acute (2) Urinary retention Priority: Primary Status: Acute (3) Pulmonary arterial hypertension Priority: Secondary Status: Chronic (4) Hypokalemia Priority: Secondary Status: Acute (5) Hypomagnesemia Priority: Secondary Status: Acute (6) Lung nodule Priority: Secondary Status: Acute (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 Dorsey is a 62 year old female significant pmh of pulmonary htn with occasional 2L nc oxygen use, parx afib on chronic Warfarin and rate control, htn and depression admitted 07/14 with symptoms of right LE weakness and tingling and bladder retention. She was found to have nonspecific colitis on CT of abd/pelvis and started on Flagyl. CT of the chest demonstrated 9mm nodules in the lungs with recommendations for repeat chest CT in 3 months and follow up with PCP for further recommendations. She had a palmer catheter placed with urinary retention and a UA was collected which has since grown gram negative rods. She has had stable labs and vitals through her hospital stay. 07/15 Palmer catheter was removed with appropriate urinary clearance post removal and she was evaluated deemed stable for discharge home with PO Cipro 500mg BID for 3 days and follow up with her PCP. She should have her INR checked after completion of antibiotics and at follow up to monitor for elevation of INR. She is agreeable with this plan. Follow up with PCP Repeat INR Lung nodules up to 9mm with recommendation for repeat chest ct or further evaluation per primary care provider. - Time Spent with Patient Total time spent providing and/or coordinating discharge services: - Discharge Medications Prescriptions: Ciprofloxacin [Cipro] 500 mg PO BID 3 Days #6 tablet Home Medications: FLUoxetine HCl [Prozac] 60 mg PO DAILY 12/27/14 [History] Metformin [Glucophage] 1,000 mg PO BID 12/27/14 [History] Multivitamin [Multi-Day Vitamins] 1 tab PO DAILY 12/27/14 [History] Treprostinil Sodium [Remodulin] 0 mg IJ AD PRN 12/27/14 [History] Diltiazem CD (24hr) [Cardizem CD] 240 mg PO DAILY 12/25/16 [History] Furosemide [Lasix] 20 mg PO TID 12/25/16 [History] Omeprazole [PriLOSEC] 40 mg PO DAILY 12/25/16 [History] Riociguat [Adempas] 2.5 mg PO TID 12/25/16 [History] Simvastatin [Zocor] 10 mg PO HS 12/25/16 [History] Spironolactone [Aldactone] 25 mg PO BID 12/25/16 [History] Tramadol HCl/Acetaminophen [Ultracet Tablet] 2 each PO TID 12/25/16 [History] Warfarin [Coumadin] 7.5 mg PO SUMOTUWEFR 12/25/16 [History] Cyanocobalamin (Vitamin B-12) [Vitamin B-12] 1,000 mcg SL DAILY 07/14/17 [ History] Ferrous Sulfate [Iron] 325 mg PO DAILY 07/14/17 [History] Magnesium Oxide [Magnesium] 400 mg PO DAILY 07/14/17 [History] Warfarin [Coumadin] 10 mg PO THSA 07/14/17 [History] Ciprofloxacin [Cipro] 500 mg PO BID 3 Days #6 tablet 07/15/17 [Rx] Allergies/Adverse Reactions: 3 Allergy/AdvReac Type Severity Reaction Status Date / Time chlorhexidine Allergy Rash Verified 04/24/17 14:57 nitrofurantoin Allergy Rash Verified 04/24/17 14:57 [From Macrobid] piroxicam [From Feldene] AdvReac Palpitation Verified 07/14/17 11:53 s Date of admission: 07/14/17 16:29 Primary care physician: Dexter Valdez Discharging clinician: Silviano Gomez Anticipated date of discharge: 07/15/17 - Constitutional Vitals: Temp Pulse Resp BP Pulse Ox 98.6 F 83 16 96/58 95 07/15/17 10:48 07/15/17 10:48 07/15/17 10:48 07/15/17 10:48 07/15/17 10:48 Exam: General: Patient alert, awake, oriented 3, interactive, in no acute distress HEENT: Normocephalic, atraumatic, pupils equal reactive to light, oral mucosa moist, uvula midline, neck supple trachea midline no palpable lymphadenopathy, no thyromegaly. Chest: Symmetric bilateral correlating with respiratory effort, effort nonlabored. Cardiac: Regular rate and rhythm, grade 2/6 systolic ejection murmur appreciated in the pulmonic auscultatory velázquez, no bruits appreciated bilateral carotids, Radial pulses 2+ bilateral, posterior tibial and dorsal pedal pulses 2+ bilateral. Respiratory: Clear to auscultation all lung velázquez Abdomen: Soft, nontender, positive bowel sounds, no palpable masses appreciated on examination Extremities: Symmetric bilateral, bilateral lower extremities without erythema or edema patient moving all 4 extremities spontaneously. Muscle strength 5 out of 5 bilateral lower extremities with neurovascular intact. 5 out of 5 upper extremities bilateral muscle strength Neurologic: No focal deficits appreciated on examination. Face symmetric, muscle strength symmetric bilateral upper and lower extremities. - Patient Status Disposition: Home, Self-Care Condition: Good Functional capacity at discharge: independent ambulation Overall status at discharge: patient is progressing back to baseline - Discharge Instructions Instructions: Ciprofloxacin (By mouth), Warfarin (By mouth), Diabetes Mellitus Type 2 in Adults (DC) Follow Up With: Ashley Gasca CNP [Advanced Practice Nurse] - 07/18/17 11:30 am Silviano Rasmussen DO [Primary Care Provider] - Additional Instructions: Take Rx as prescribed. 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 Dorsey is a 62 year old female - Time Spent with Patient Total time spent providing and/or coordinating discharge services: Date of admission: 07/14/17 16:28 Primary care physician: Dexter Valdez - Constitutional Vitals: Temp Pulse Resp BP Pulse Ox 98.3 F 95 19 109/58 95 07/15/17 15:58 07/15/17 15:58 07/15/17 15:58 07/15/17 15:58 07/15/17 15:58 - Attending Attestation UTI, stable to discharge on cipro Urine culture pending will call if antibiotic needs to be changed I examined this patient and my medical decision-making was reviewed with the Resident Physician. I agree with the documented findings, disposition and treatment plan as described except to the extent set forth below
[2017-07-15 15:23] VITALS: BP 109/58
[2017-07-15] MEDS ORDERED: *HR* Warfarin 3 MG TABLET PO ONE (18:00)
[2017-07-15] MEDS ORDERED: Warfarin perPT PO PRN (18:00)
--- NOTE | 2017-07-15 22:55 | Electrocardiograph Report ---
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
[2017-07-16] MEDS ORDERED: FLUoxetine 20 MG CAPSULE PO SCH (09:00)
== END 2017-07-15 16:39 | disposition home or self-care (01) ==
LOC: EMEROO 09:51 → 3ANU 09:51
PROVIDERS: ADMIT Internal Medicine Cardiovascular Disease; ATTEND Internal Medicine